=== PATIENT | female | born 1935 | race Caucasian/White ===

== ENCOUNTER → 2019-03-09 | Outpatient (CLI) | payer MEDICARE, BC, SELFPAY ==
[2019-03-12 15:07] LABS: HSV 1 By PCR Negative (Negative)
[2019-03-13 10:13] LABS: HSV 2 By PCR Negative (Negative)
== END | disposition home or self-care (01) ==
LOC: LABSPEC 13:20
PROVIDERS: Visit Provider Obstetrics & Gynecology
DX: L98.9 Disorder of the skin and subcutaneous tissue, unspecified (principal); Z11.3 Encounter for screening for infections with a predominantly sexual mode of transmission
CPT/HCPCS: 87529

== ENCOUNTER 2019-03-17 08:22 | Outpatient (RCR) | payer MEDICARE, BC, SELFPAY ==
[2019-03-10 08:11] VITALS: BMI 24.7
[2019-03-17 08:53] VITALS: BP 162/88; PULSE 96; RESP 18; TEMP 36.6; BMI 24.7
--- NOTE | 2019-03-17 09:47 | PN.PCM_ITS ---
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 Soler training director. She then was diagnosed with lichen's sclerosis from her LOSS MITIGATION SPECIALIST that had performed a bladder suspension surgery. Patient has been treating the area with clobetosol cream twice a day. Her LOSS MITIGATION SPECIALIST thinks it was a yeast infection and treated her with nystatin cream that did not help. Dr. Soler's group is never treated her are known about the lichen sclerosus. Patient was sent from LOSS MITIGATION SPECIALIST to Dr. Liz for an evaluation and surgery possible biopsy. He agreed she need a biopsy but sent her to wound center and that is how she said it was sent here. - Physical Exam Vital Signs Temp Pulse Resp BP 98 F 96 18 162/88 H 03/17/19 08:53 03/17/19 08:53 03/17/19 08:53 03/17/19 08:53 Wound Measurements and Assessment WC - Nurse 1 - General Ulcer Measurement Start: 03/17/19 08:29 Freq: Status: Active Protocol: Activity Type Activity Date Activity User E-Sign Co-Sign Detail Recorded Client Recorded Date Recorded By Document 03/17/19 08:53 RB [id number] 03/17/19 08:57 RB 03/17/19 08:53 Wound Center Nurse 1 [Ulcer Assessment] 1. L buttocks -Combined with other wound No -Current Size (cm) - Length 0.4 -Current Size (cm) - Width 0.4 -Current Size (cm) - Depth 0.2 -Total Square Cm 0.16 -Tunneling No -Undermining/Tunneling No -Circular Undermining No -Exudate Amt Small -Exudate Type Serosanguineous -Wound Margin Distinct, Outline Attached -Granulation Amt Medium (34-66%) -Granulation Quality [place] -Slough/Fibrin Yes -Necrosis Amt Small (1-33%) -Necrotic Tissue Type Adherent Slough -Structure Exposed N/A -Texture (Rita-wound Skin Appearance) Assessed -Moisture (Rita-wound Skin Appearance Assessed ) -Color (Rita-wound Skin Appearance) Assessed -Temperature (Rita-wound Skin No Abnormality Appearance) (Pt Warm) -Tenderness on Palpation (Rita-wound No Skin Appearance) -Ulcer Cleansing Wound Cleanser -Foul Odor after Cleansing No -Anesthetic Used 5% Lidocaine Gel - Nurse 2 - General Ulcer CM Notes Start: 03/17/19 08:29 Freq: Status: Active Protocol: Activity Type Activity Date Activity User E-Sign Co-Sign Detail Recorded Client Recorded Date Recorded By Document 03/17/19 09:19 MW [id number] 03/17/19 09:26 MW 03/17/19 09:19 Wound Center Nurse 2 [Procedure/Treatment] -Time 09:20 -Correct Patient Yes -Correct Side, Site, Position Yes -Correct Procedure Yes -Procedure Performed No -Wound/Ulcer Outcome Healed- Epithelialized [See Physician Procedure note for Specifics] Pain Scale: 0-10 Numeric [Pain] -Is Patient Pain Free? Yes Debridement Note Post-Debridement Measurements/Treatment - Nurse 2 - General Ulcer CM Notes Start: 03/17/19 08:29 Freq: Status: Active Protocol: Activity Type Activity Date Activity User E-Sign Co-Sign Detail Recorded Client Recorded Date Recorded By Document 03/17/19 09:19 MW [id number] 03/17/19 09:26 MW 03/17/19 09:19 Wound Center Nurse 2 1. L buttocks -Time 09:20 -Correct Patient Yes -Correct Side, Site, Position Yes -Correct Procedure Yes -Procedure Performed No -Wound/Ulcer Outcome Healed- Epithelialized Pain Scale: 0-10 Numeric Is Patient Pain Free? Yes Assessment/Plan Active Problems (Last Reviewed 03/10/19 @ 08:27 by Zac Liz MD) Lupus erythematosus (Acute) Lichen sclerosus of female genitalia (Acute)
--- NOTE | 2019-03-17 09:54 | PCM.WC.HP ---
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 She is currently on Plaquenil for this. Then she had major surgery for a bladder suspension and developed another rash in the vulvar area that her EMERGENCY DEPARTMENT RN diagnosed as lichen sclerosis. She is not sure what he is treating her with that for but told her she did have at the rest of her life. Recently she has had another outbreak and around her rectal area and her vulvar area inflamed has been using the. Clobetasol to both areas and not helping she discussed it with her EMERGENCY DEPARTMENT RN and he treated as a yeast infection and topical nystatin creams did not help. to the EMERGENCY DEPARTMENT RN sent her to surgery and Dr. Liz told her to continue the Epson salt soaks and get a biopsy and sent her to the wound center. Since this is not a wound and this is a dermatological problem I have sent her back to [facility] to have a biopsy and proper treatment. Patient is already scheduled for an appointment on Wednesday with her foam rubber fabricator about her lupus. Past Medical History Past Medical History: Lupus erythematosus, lichen sclerosis Allergies/Adverse Reactions: Allergies No Known Allergies Allergy (Verified 08/07/13 11:17) Home Medications: Ambulatory Orders Medication Instructions Recorded Acetaminophen [Tylenol] 500 mg PO Q6H PRN PRN 08/07/13 Calcium Carb/Vitamin D 1 tab PO DAILY@0800 08/07/13 [Caltrate-600 With Vit D Tab] Docusate Sodium [Colace] 100 mg PO BID PRN PRN #60 cap 08/17/13 Ibuprofen [Motrin] 600 mg PO Q6H PRN PRN #30 tab 08/17/13 clonidine HCl 0.1 mg tablet 0.1 mg PO Q12H 03/10/19 diphenhydramine 25 mg capsule 25 mg PO QHS 03/10/19 hydroxychloroquine 200 mg tablet 200 mg PO DAILY 03/10/19 levothyroxine 75 mcg tablet 88 mcg PO DAILY tab 03/10/19 losartan 100 1 tab PO DAILY 03/10/19 mg-hydrochlorothiazide 12.5 mg tablet omega-3 fatty acids 1,000 mg 1,000 mg PO BID cap 03/10/19 capsule Vit C/E/Zn/Coppr/Lutein/Zeaxan 1 ea PO BID 03/17/19 [Preservision Areds 2 Softgel] Smoking Status: Light Smoker (<10/day) Review of Systems Constitutional: Denies: Chills, Fever Eyes: Denies: Blurred vision, Drainage, Pain HEENT: Denies: Difficulty Hearing, Difficulty Swallowing, Sore Throat, Visual Changes Cardiovascular: Denies: Chest Pain, Palpitations, Syncope Respiratory: Denies: Cough, Shortness of Breath Gastrointestinal: Denies: Abdominal Pain, Nausea, Vomiting Genitourinary: Denies: Dysuria, Frequency Musculoskeletal: Denies: Joint Pain, Muscle pain Skin: Reports: Dryness, Pruritis, Rash, Skin Changes. Denies: Jaundice Neurological: Denies: Balance problems, Change in Speech, Difficulty swallowing, Focal weakness Psychiatric: Denies: Anxiety, Depression Endocrine: Denies: Change in Body Habitus Hematologic/ Lymphatic: Denies: Adenopathy - Physical Exam Vital Signs Temp Pulse Resp BP 98 F 96 18 162/88 H 03/17/19 08:53 03/17/19 08:53 03/17/19 08:53 03/17/19 08:53 General: Oriented x3, Cooperative, Well developed HEENT: Atraumatic, PERRLA Oral: Moist Mucosa Neck: Supple, No JVD Lungs: Clear to auscultation, Normal air movement Cardiovascular: Regular rate, Regular Rhythm Abdomen: Bowel Sounds Present, Soft, Non Tender, No Hepato-splenomegaly Extremities: No clubbing, No edema Skin: Rash Present - Buttocks and vulvar area Wound Measurements and Assessment WC - Nurse 1 - General Ulcer Measurement Start: 03/17/19 08:29 Freq: Status: Active Protocol: Activity Type Activity Date Activity User E-Sign Co-Sign Detail Recorded Client Recorded Date Recorded By Document 03/17/19 08:53 RB [id number] 03/17/19 08:57 RB 08/30/19 08:53 Wound Center Nurse 1 [Ulcer Assessment] 1. L buttocks -Combined with other wound No -Current Size (cm) - Length 0.4 -Current Size (cm) - Width 0.4 -Current Size (cm) - Depth 0.2 -Total Square Cm 0.16 -Tunneling No -Undermining/Tunneling No -Circular Undermining No -Exudate Amt Small -Exudate Type Serosanguineous -Wound Margin Distinct, Outline Attached -Granulation Amt Medium (34-66%) -Granulation Quality [place] -Slough/Fibrin Yes -Necrosis Amt Small (1-33%) -Necrotic Tissue Type Adherent Slough -Structure Exposed N/A -Texture (Rita-wound Skin Appearance) Assessed -Moisture (Rita-wound Skin Appearance Assessed ) -Color (Rita-wound Skin Appearance) Assessed -Temperature (Rita-wound Skin No Abnormality Appearance) (Pt Warm) -Tenderness on Palpation (Rita-wound No Skin Appearance) -Ulcer Cleansing Wound Cleanser -Foul Odor after Cleansing No -Anesthetic Used 5% Lidocaine Gel WC - Nurse 2 - General Ulcer CM Notes Start: 03/17/19 08:29 Freq: Status: Active Protocol: Activity Type Activity Date Activity User E-Sign Co-Sign Detail Recorded Client Recorded Date Recorded By Document 03/17/19 09:19 MW [id number] 03/17/19 09:26 MW 03/17/19 09:19 Wound Center Nurse 2 [Procedure/Treatment] -Time 09:20 -Correct Patient Yes -Correct Side, Site, Position Yes -Correct Procedure Yes -Procedure Performed No -Wound/Ulcer Outcome Healed- Epithelialized [See Physician Procedure note for Specifics] Pain Scale: 0-10 Numeric [Pain] -Is Patient Pain Free? Yes Musculoskeletal: No Tenderness to Palpation of Joints or Extremities Lymphatic: No Cervical, Supraclavicular, or Inguinal Adenopathy Neurological: Cranial nerves II-XII grossly intact, Neuro grossly intact Psych/Mental Status: Normal Affect, Appropriate, Alert and oriented to time, place, person, mood and affect Debridement Note Post-Debridement Measurements/Treatment WC - Nurse 2 - General Ulcer CM Notes Start: 03/17/19 08:29 Freq: Status: Active Protocol: Activity Type Activity Date Activity User E-Sign Co-Sign Detail Recorded Client Recorded Date Recorded By Document 03/17/19 09:19 MW [id number] 03/17/19 09:26 MW 03/17/19 09:19 Wound Center Nurse 2 1. L buttocks -Time 09:20 -Correct Patient Yes -Correct Side, Site, Position Yes -Correct Procedure Yes -Procedure Performed No -Wound/Ulcer Outcome Healed- Epithelialized Pain Scale: 0-10 Numeric Is Patient Pain Free? Yes No debridement was completed today Assessment/Plan Active Problems (Last Reviewed 03/10/19 @ 08:27 by Zac Liz MD) Lupus erythematosus (Acute) Lichen sclerosus of female genitalia (Acute) Assessment: lichens sclerosis. lupus erythmatosus Plan: Discharge from the wound center and follow-up with dermatology on Wednesday and Dr. Soler's group
== END 2019-03-18 23:59 ==
LOC: WC 08:22
PROVIDERS: Family Provider Family Medicine; PCP Family Medicine; Referring Provider Surgery; Visit Provider Nurse Practitioner
DX: L93.0 Discoid lupus erythematosus (principal); L90.0 Lichen sclerosus et atrophicus; N90.4 Leukoplakia of vulva; Z79.899 Other long term (current) drug therapy; F17.200 Nicotine dependence, unspecified, uncomplicated
CPT/HCPCS: 99213; G0463

== ENCOUNTER 2020-02-01 17:00 | Outpatient (RCR) | payer MEDICARE, BC, SELFPAY ==
--- NOTE | 2019-12-26 18:22 | HP.PTEVAL_ITS ---
Patient's Visit Information WINSTON BOSS is a 84 year old F referred to Physical Therapy by Dr. Urbano Metzger MD with a diagnosis of Neuropathy with balance problems. Date of Evaluation: 12/26/19 Physical Therapist: Woo Kim, DPT, OCS, CSCS - Visit Plan Plan: [facility] balance assessment then 2x/week for 4-8 weeks for. weight shifts. ankle strength adn prorpio. gait training with decreasing device as able. stair training. LE strength - Subjective Dr. Metzger sent over . She went to family doctor due to hand and toe tingling. Put on B12 and got some shots. [place] stiffness develop in stiffness in hands and fett. This was all of a sudden in September for no reason Sent to [facility] and had EMG and other tests and did not find much. So he suggested PT. Also has not been walking properly. Tried medications but they made her worse. No spinning dizzyness, just unsteady when walking. No falls. These symptoms were not present at the holidays last year. Uses cane and has walker. Can do dishes adn cook a little, does laundry. Takes care of bodily functions OK. Just doesn't f eel right. Hs not had MRI or catscan. Sleep is OK. Not employed. Spends day not doing much. Lives alone, has steps to enter onto back porch with one hold. Lost a lot of weight in the last year due to teeth problems. DIL gets groceries, others mows lawn. - Objective Walks with neuropathic and slightly fearful gait pattern avoiding weight shifting and staggering upon first stadning. Uses cane to ambulate and is mod I and slow and hunched. With wh walker, she stand up taller adn is more confident adn mod I. Trasnfers awithout UE I. Steps are reciprocal with cane and rail I but slow and weak on push up. coordination in ankles to reciprocal tapping is poor at heel taps and defictis with toe taps. reflexes 1/3 in patella and achilles. Sensation to gross light touch is WNL in LE but seems worse at feet. Strength in ankles is DF 3, ev/inv 3+, PF 3+, knee flex/ext 3+ and hip ext/abd 3 and flexion 3+ and adduction 4-. Stands hunched over with butt sticking out backwards and avoids weight through front of foot. UE aROM WFL - Balance Scores Functional Gait Assessment Score: 16 % Disability: 46.6700 CATSIB Score (Max score 120 seconds): 34 - Goals Goal 1:: FGA to limit fall risk. Goal Time Frame: 6-8 Weeks Goal 2:: Walk with cane through house safely and confidently Goal Time Frame: 4-6 Weeks Goal 3:: Pt feel balance 50% better overall Goal Time Frame: 4-6 Weeks Goal 4:: I approp HEP to limit future problems. Goal Time Frame: 4-6 Weeks - Rehabilitation Potential Physical Therapy Diagnosis: Neuroapthy with balance deficits Rehabilitation Potential: Questionable - Anticipated Interventions Patient/Client Instruction: Educate patient on: Condition, Plan of Care For the Purpose of:: To improve ability of physical actions for home/community/work/leisure, To improve gait and locomotor functions, To improve balance Therapeutic Exercise to Include: Strength training, Balance training, Flexibilty training, Gait and locomotor training For the Purpose of:: To increase tolerance to activity/condition/position, To improve gait and locomotor functions, To improve safety Thank you for the opportunity to evaluate your patient. For Medicare and Medicare HMO plans, please review the plan of care and approve it. It will need to be FAXED BACK to us at [phone] for Medicare purposes. For Medicare only, by signing this I certify the plan of care. Please let me know if there are questions or concerns regarding this plan of care. Physician Signature: Date:
--- NOTE | 2020-01-02 17:16 | HP.PTCOM_ITS ---
PT Communication Note 01/02/[address] Urbano Metzger MD , Thank you for the referral of Shanna to [facility] for Balance Testing. I have enclosed a copy of the results for your review. In summation, she scored low on the vestibular portion of the Sensory Organization Test. she scored slow on the Motor Control Test. She was unable to tolerate the Limits of Stability Test today but appears to have and lack of ability to shift weight forward due to her neuropathy. With these results in mind, I plan to see her 2x/week for 4-8 weeks to work on ankle adn LE strength function, balance exercises to address the above mentioned deficits. Please contact me if there are questions or concerns. Thank you. Sincerely, Woo Kim DPT, OCS, CSCS Contact Information
--- NOTE | 2020-02-01 17:24 | HP.PTREVAL_ITS ---
Dr. Urbano Metzger MD, It has been my pleasure to treat WINSTON BOSS over the last 7 visits for Neuropathy with balance problems. Please see the progress note below for an update on the physical therapy plan of care! Subjective: Feels better. Did fall the other day in garage when she left her walker behind and turned. Did not get hurt. Strength is about the same. F/u with other neuro in [place] in March. Will see hand ortho guys soon also. Does exercises at home at counter for strengthening. Legs feel stiff. Objective/Function: Balance not improving and scoring worse but pt missed a number of vists. She has gotten I with HEP at counter. Recommend continue PT for gait training and stair traing challenges. pt to contact doctor regarding alck of improvement adn worsening hands. Appropriate to cotninue with PT for balance and safety but a questionable prognosis Plan Plan: 2x/week for 4 weeks for gait training(pt can do counter exercises at home) please spend time on steps and gait training for distance and balance challenges with turns and head movements and bending. Pt to use wh walker outside of therapy for safety. Goals Goal 1:: FGA to limit fall risk. Goal Time Frame: 6-8 Weeks Goal Progress: Not Progressing, approp Goal 2:: Walk with cane through house safely and confidently Goal Time Frame: 4-6 Weeks Goal Progress: wh walker appropriate. Goal 3:: Pt feel balance 50% better overall Goal Time Frame: 4-6 Weeks Goal Progress: Not Progressing Goal 4:: I approp HEP to limit future problems. Goal Time Frame: 4-6 Weeks Goal Progress: LE sink strength Anticipated Interventions Patient/Client Instruction: Educate patient on: Condition, Plan of Care For the Purpose of:: To improve ability of physical actions for home/community/work/leisure, To improve gait and locomotor functions, To improve balance Therapeutic Exercise to Include: Strength training, Balance training, Flexibilty training, Gait and locomotor training For the Purpose of:: To increase tolerance to activity/condition/position, To improve gait and locomotor functions, To improve safety Please do not hesitate to contact me at [phone] by phone or if you have questions or concerns regarding this new plan of care! Sincerely, Woo Kim, DPT, OCS, CSCS
== END 2020-02-01 19:00 | disposition home or self-care (01) ==
LOC: PT 17:00
PROVIDERS: PCP Family Medicine; Referring Provider Psychiatry & Neurology Neurology; Visit Provider Psychiatry & Neurology Neurology
DX: G62.9 Polyneuropathy, unspecified (principal); R26.9 Unspecified abnormalities of gait and mobility
CPT/HCPCS: 97110; 97162; 97164; 97750

== ENCOUNTER 2024-03-17 10:06 | Outpatient (CLI) | payer MEDICARE, BC, SELFPAY ==
[2024-03-17 10:50] VITALS: BP 118/45; PULSE 72; RESP 16; TEMP 35.8; O2SAT 100; BMI 23.2
[2024-03-17] MEDS: Acetaminophen 325 MG Tablet 650 MG PO (11:02)
[2024-03-17] MEDS: 0.9% Normal Saline (500mL Bag) 500 ML 15 ML IV (11:02)
[2024-03-17 11:30] VITALS: BP 118/51; PULSE 66; RESP 16; TEMP 36.1; O2SAT 96
[2024-03-17 12:30] VITALS: BP 134/57; PULSE 69; RESP 16; TEMP 36.1; O2SAT 95
[2024-03-17 13:05] VITALS: BP 143/53; PULSE 66; RESP 16; TEMP 36.1; O2SAT 98
== END 2024-03-17 23:59 | disposition home or self-care (01) ==
LOC: MEDOUTP 10:07
PROVIDERS: PCP Family Medicine; Referring Provider Specialist; Visit Provider Specialist
DX: D64.9 Anemia, unspecified (principal)
CPT/HCPCS: 36430; 86850; 86900; 86901; 86920; 86922; J7040; P9016

== ENCOUNTER 2024-10-16 19:39 | Emergency (ER) | payer MEDICARE, BC, SELFPAY ==
[2024-10-16 19:40] VITALS: BP 162/84; PULSE 75; RESP 16; TEMP 37; O2SAT 99
--- NOTE | 2024-10-16 20:34 | RAD_ITS ---
PROCEDURE: HIP, UNI W/ PELVIS 2-3 VIEWS 10/16/2024 REASON FOR EXAM: FALL TECHNIQUE: 2 views of the right hip and pelvis COMPARISON: None FINDINGS: Bones: No acute fracture or dislocation. The pelvic rim is intact. Joints: Normal alignment. Soft tissues: Soft tissues are unremarkable. Other: RAD/HIP, UNI W/ Pelvis 2-3 Views IMPRESSION: No acute fracture or dislocation. Reading Location: [facility]
--- NOTE | 2024-10-16 21:07 | RAD_ITS ---
PROCEDURE: FOOT MIN 3 VIEWS 10/16/2024 REASON FOR EXAM: PAIN, INJURY TECHNIQUE: 3 views of the right foot. COMPARISON: None FINDINGS: Bones: Comminuted fracture involving the necks of the 2nd, 3rd and 4th metatarsals. No dislocation is demonstrated. Heterogeneous appearance of the osseous structures. Joints: Normal alignment. Soft tissues: Soft tissues are unremarkable. Other: RAD/Foot min 3 Views IMPRESSION: Comminuted fracture involving the necks of the 2nd, 3rd and 4th metatarsals. Reading Location: [facility]
--- NOTE | 2024-10-16 21:20 | EDS_ITS ---
HPI <ROSE Galicia - Last Filed: 10/16/24 22:00> History of Present Illness Chief Complaint: Fall Narrative Narrative: Patient resenting today with pain to her right hip after a mechanical fall occurred Wednesday. She was ambulating without her walker which she does not normally do, she lost her balance and fell onto her right side. She did not hit her head, no LOC occurred. She is not on any blood thinners. She reports pain to her right hip that is worse with ambulation and improved with rest. She also reports bruising to her right foot but denies having any pain to the area. She is able to ambulate. She has been taking Tylenol for pain as needed. [facility] <ROSE Galicia - Last Filed: 10/16/24 22:00> [facility] Medical History Hemorrhoids Acid reflux Hypertension buttock lesion Thyroid disease Home Medications ?Medication ?Instructions ?Recorded ?Last Taken ?Type acetaminophen 500 mg tablet 500 mg PO Q6H PRN PRN Pain 08/07/13 Unknown History clonidine HCl 0.1 mg tablet 0.1 mg PO Q12H 03/10/19 Un known History diphenhydramine HCl 25 mg capsule 25 mg PO QHS 9 Unknown History (Benadryl) levothyroxine 75 mcg tablet 50 mcg PO DAILY 03/10/19 U nknown History losartan 100 1 tab PO DAILY 03/10/19 Unkn own History mg-hydrochlorothiazide 12.5 mg tablet amlodipine 2.5 mg tablet 2.5 mg PO DAILY 03/17/24 Unk nown History buspirone 5 mg tablet 5 mg PO BID 03/17/24 Unknown History cranberry 500 mg capsule 500 mg PO DAILY 03/17/24 Unk nown History cyanocobalamin (vitamin B-12) 1,000 mcg PO DAILY 03/17 Unknown History 1,000 mcg capsule duloxetine 30 mg capsule,delayed 30 mg PO DAILY Unknown History release (Cymbalta) ergocalciferol (vitamin D2) 1,250 1,250 mcg PO QWEEK 0 03/17/24 Unknown History mcg (50,000 unit) capsule (Vitamin D2) estradiol 0.01% (0.1 mg/gram) 1 appful vaginal MOWEFR 03/17/24 Unknown History vaginal cream (Estrace) famotidine 20 mg tablet 20 mg PO BID 03/17/24 Unknow n History ferrous sulfate 325 mg (65 mg 325 mg PO DAILY 03/17/24 Unknown History iron) tablet (iron) nystatin 100,000 unit/gram topical 1 applic topical BI D 03/17/24 Unknown History powder ropinirole 0.25 mg tablet 0.25 mg PO QHS 03/17/24 Unkn own History vit C 250 mg-vit E 90 mg-zinc 40 1 tab PO BID 03/17/24 Unknown History mg-copper 1 [id number] capsule (PreserVision AREDS-2) zinc oxide-cod liver oil 40 % 1 applic topical DAILY 0 03/17/24 Unknown History topical paste (Desitin) Allergy/AdvReac Type Severity Reaction Status Date / Time No Known Allergies Allergy Verified 10/16/24 19:41 Family History Aunt Breast cancer Sister Cancer Mother Heart disease Son Autoimmune disease Surgical History history left ear biopsy history repair enterocele History of tonsillectomy History of dilatation and curettage History of cholecystectomy History of hysterectomy Social History Smoking Status: Former smoker alcohol intake: never substance use type: does not use ROS <ROSE Galicia - Last Filed: 10/16/24 22:00> ROS ED Constitutional Constitutional ED: Denies chills or fever(s) Cardiovascular Cardiovascular: Denies chest pain Respiratory/Chest Respiratory/Chest: Denies dyspnea Gastrointestinal Gastrointestinal: Denies abdominal pain, nausea or vomiting Musculoskeletal Musculoskeletal: Reports arthralgias Integumentary Denies rash Neurologic Neurologic: Denies paresthesias or weakness EXAM <ROSE Galicia - Last Filed: 10/16/24 22:00> Physical Exam Const Vital Signs: 10/16/24 19:40 10/16/24 21:00 Temperature 98.6 F Temperature Source Temporal Pulse Rate 75 Respiratory Rate 16 Respiratory Effort Normal Respiratory Depth Normal Respiratory Pattern Normal Blood Pressure 162/84 H Blood Pressure Mean 110 Pulse Ox 99 Positive well nourished, well developed and no apparent distress General Appearance ED: well developed HEENT Reports normocephalic and head/scalp atraumatic Mouth ED: Yes moist mucous membranes normal Eyes PERRL and EOMs intact bilaterally Neck full ROM and supple Chest Wall inspection of chest normal Resp normal respiratory effort and clear to auscultation bilaterally Cardio regular rate and regular rhythm Back/Spine normal ROM and normal to inspection Extremity normal to inspection and full ROM Extremity Narrative: Full range of motion to the right hip with pain palpation to the right greater trochanter, negative logroll on the right, no overlying erythema or bruising. Right DP pulse 2+, good cap refill, sensation intact. Slight bruising to the lateral/ dorsal aspect of the right foot with no pain to palpation. She also has bruising to her distal right raman with no pain to palpation to the area. She reports that it is not uncommon for her to have bruising to her raman because she occasionally hits her leg against the washing machine. Neuro oriented x3, CN's II-XII intact bilaterally, moves all extremities, no focal motor deficits and no sensory deficits noted Sensorium / Orientation: awake and alert Psych mental status grossly normal and thought process normal Skin no rashes or lesions noted and no wounds <Dr. Woo Davis DO - Last Filed: 10/16/24 22:06> Physical Exam Const Vital Signs: 10/16/24 19:40 10/16/24 21:00 Temperature 98.6 F Temperature Source Temporal Pulse Rate 75 Respiratory Rate 16 Respiratory Effort Normal Respiratory Depth Normal Respiratory Pattern Normal Blood Pressure 162/84 H Blood Pressure Mean 110 Pulse Ox 99 [facility] <ROSE Galicia - Last Filed: 10/16/24 22:00> [facility] Narrative Medical decision making narrative: Patient presenting today with pain to her right hip after mechanical fall occurred 2 days ago. She is able to ambulate. No head injury occurred. She does not have any obvious deformity to her hip, negative logroll, no signs of infection. X-ray of the right hip obtained to assess for fracture and is negative. She does have some bruising to the dorsal lateral aspect of her right foot, x-ray was obtained and shows fractures to the second, third, and fourth metatarsals. She will be given a walking boot and a referral for podiatry. She has been taking Tylenol with good relief of her pain, I did offer analgesia and she declined. RICE instructions were discussed. She can continue taking Tylenol for pain as needed. She will be discharged home in stable condition. Radiography X-Ray: Read by ED Physician Diagnostic Testing: Clinical Impression(s) from Imaging Studies Hip/Pelvis X-Ray 10/16/24 20:34 IMPRESSION: No acute fracture or dislocation. [facility] 10/16/24 21:07 IMPRESSION: Comminuted fracture involving the necks of the 2nd, 3rd and 4th metatarsals. [facility] <Dr. Woo Davis, DO - Last Filed: 10/16/24 22:06> MDM Radiography Diagnostic Testing: Clinical Impression(s) from Imaging Studies Hip/Pelvis X-Ray 10/16/24 20:34 IMPRESSION: No acute fracture or dislocation. [facility] 10/16/24 21:07 IMPRESSION: Comminuted fracture involving the necks of the 2nd, 3rd and 4th metatarsals. [facility] Treatment and Re-Evaluation Narrative: I have personally performed a face to face assessment of the patient and have reviewed the DOLORES Note. I performed a substantive portion of the visit including all aspects of the following. My frost findings include: History: Patient presents after a fall that occurred 2 days ago. Patient complains of pain over her right hip and thigh. Patient also admits to some swelling in her right foot. Patient states she has a history of peripheral neuropathy and has numbness in both hands and feet. Patient denies any pain in her foot. Patient does admit to some bruising of her right foot. Patient states her pain is worse with any weightbearing. Patient states she normally gets around in a wheelchair but ambulates with a walker to go to the bathroom. Exam: Vital signs are stable. Patient is afebrile. Patient is in no acute distress. Musculoskeletal exam reveals tenderness over the right hip and proximal femur. There is no deformity noted. There is range of motion. There are some superficial skin tears noted over the lateral aspect of the right thigh. There is no active bleeding noted. There is also some ecchymosis of the lateral aspect of the right foot. There is no deformity noted. Pedal pulses are equal bilateral. Sensation was intact to light touch bilaterally in the feet. Medical Decision Making: Differential diagnosis includes hip fracture, foot fracture, contusion, and sprain. X-rays of the right hip will be obtained to assess for fracture. X-rays of the right foot will be obtained to assess for fracture. X-rays of the right hip were obtained. There are 3 views. On my independent interpretation, there is no acute fracture. There is no dislocation. There are some degenerative changes noted. Radiologist also interpreted the x-rays and agrees. X-rays of the right foot were obtained. There are 3 views. On my independent interpretation, there are nondisplaced but angulated fractures of the distal second, third, and fourth metatarsals. There is osteopenia noted. Radiologist also interpreted the x-rays and agrees. Discharge Plan Triage Chief Complaint: Fall ED Midlevel Provider: Nemo Elizabeth ED Provider: Woo Davis Dx/Rx/DC Orders Clinical Impression: Contusion of hip, right, Fall, Foot fracture, right Instructions: ED Fracture, Foot, ED Hip Contusion Prescriptions: No Action losartan-hydrochlorothiazide 100-12.5 mg tablet 1 tab PO DAILY clonidine HCl 0.1 mg tablet 0.1 mg PO Q12H diphenhydramine HCl [Benadryl] 25 mg capsule 25 mg PO QHS acetaminophen 500 MG tablet 500 mg PO Q6H PRN PRN (Reason: Pain) levothyroxine 75 mcg tablet 50 mcg PO DAILY ropinirole 0.25 mg tablet 0.25 mg PO QHS amlodipine 2.5 mg tablet 2.5 mg PO DAILY duloxetine [Cymbalta] 30 mg capsule,delayed release(DR/EC) 30 mg PO DAILY buspirone 5 mg tablet 5 mg PO BID estradiol [Estrace] 0.01 % (0.1 mg/gram) cream 1 appful vaginal MOWEFR Rx Instructions: for 14 days cyanocobalamin (vitamin B-12) 1,000 mcg capsule 1,000 mcg PO DAILY famotidine 20 mg tablet 20 mg PO BID nystatin 100,000 unit/gram powder 1 applic topical BID PreserVision AREDS-2 250-90-40-1 mg capsule 1 tab PO BID Desitin 40 % paste 1 applic topical DAILY cranberry 500 mg capsule 500 mg PO DAILY Rx Instructions: administer with a meal ferrous sulfate [iron] 325 mg (65 mg iron) tablet 325 mg PO DAILY ergocalciferol (vitamin D2) [Vitamin D2] 1,250 mcg (50,000 unit) capsule 1,250 mcg PO QWEEK Primary Care Provider: Philip Hankins Referrals: Philip Hankins, [Primary Care Provider] - 1 Week if not improving Mauri Brooke DPM [Med Staff - Active Staff] - 5-7 Days Activity Restrictions/Additional Instructions: Follow-up with podiatry. You can take Tylenol for pain as needed. Return for any worsening symptoms. Ice the area several times daily to help with pain. Print Language: Haitian Disposition Disposition: Home, Self Care
[2024-10-16 22:21] VITALS: BP 155/80; PULSE 75; RESP 19; TEMP 36.3; O2SAT 97
== END 2024-10-16 22:40 | disposition home or self-care (01) ==
PROVIDERS: Emergency Provider Emergency Medicine; PCP Family Medicine; Visit Provider Emergency Medicine
DX: S92.324A Nondisplaced fracture of second metatarsal bone, right foot, initial encounter for closed fracture (principal); Z87.891 Personal history of nicotine dependence; S70.01XA Contusion of right hip, initial encounter; W18.39XA Other fall on same level, initial encounter; I10 Essential (primary) hypertension; Z79.899 Other long term (current) drug therapy; K21.9 Gastro-esophageal reflux disease without esophagitis; Z90.49 Acquired absence of other specified parts of digestive tract; Z90.710 Acquired absence of both cervix and uterus; S92.334A Nondisplaced fracture of third metatarsal bone, right foot, initial encounter for closed fracture; S92.344A Nondisplaced fracture of fourth metatarsal bone, right foot, initial encounter for closed fracture
CPT/HCPCS: 73502; 73630; 99284